=== PATIENT | female | born 1945 | race Asian ===

== ENCOUNTER 2017-06-15 15:38 | Emergency (ER) | payer MEDICARE, OTHER ==
[2017-06-15 18:03] VITALS: BP 120/61
== END 2017-06-15 17:20 | disposition home or self-care (01) ==
LOC: ED 15:38
DX: S80.02XA Contusion of left knee, initial encounter (principal); I10 Essential (primary) hypertension; E78.00 Pure hypercholesterolemia, unspecified; W19.XXXA Unspecified fall, initial encounter; Y93.89 Activity, other specified; Y99.8 Other external cause status; Y92.89 Other specified places as the place of occurrence of the external cause